=== PATIENT | female | born 1935 | race Caucasian/White ===

== ENCOUNTER 2017-03-22 13:48 | Emergency (ER) | payer MEDICARE, OTHER ==
[2017-03-22 13:57] VITALS: BP 155/44
== END 2017-03-22 14:57 | disposition home or self-care (01) ==
LOC: JD.ED 13:48
DX: Z53.21 Procedure and treatment not carried out due to patient leaving prior to being seen by health care provider (principal); N18.3 Chronic kidney disease, stage 3 (moderate)
CPT/HCPCS: 76775; 76775-26; 93976; 93976-26; 99284

== ENCOUNTER 2023-03-14 12:28 | Emergency (ER) | payer MEDICARE, OTHER ==
[2023-03-14] MEDS ORDERED: Sodium Chloride 0.9% 10 ML Syringe FLUSH PRN (12:35)
[2023-03-14] MEDS ORDERED: Sodium Chloride 0.9% 1,000 ML IV ONE (12:36)
[2023-03-14 13:04] LABS: BASOPHILS ABSOLUTE AUTO 0.02 K/mm3 (0.01-0.08); BASOPHILS PERCENT AUTO 0.3 % (0.1-1.2); EOSINOPHILS ABSOLUTE AUTO 0.09 K/mm3 (0.04-0.36); EOSINOPHILS PERCENT AUTO 1.5 (0.7-5.8); HEMATOCRIT 34.7 % (34.1-44.9); IMMATURE GRAN ABSOLUTE AUTO 0.01 K/mm3 (0.00-0.10); IMMATURE GRAN PERCENT AUTO 0.2 % (<=1.0); LYMPHOCYTES ABSOLUTE AUTO 2.08 K/mm3 (1.18-3.74); LYMPHOCYTES PERCENT AUTO 33.7 % (19.3-51.7); MEAN CORPUSCULAR HEMOGLOBIN 30.6 pg (25.6-32.2); MEAN CORPUSCULAR HGB CONC 32.6 g/dl (32.2-35.5); MEAN PLATELET VOLUME 10.1 fl (9.4-12.3); MONOCYTES ABSOLUTE AUTO 0.61 K/mm3 (0.24-0.36); MONOCYTES PERCENT AUTO 9.9 % (4.7-12.5); NEUTROPHILS ABSOLUTE AUTO 3.36 K/mm3 (1.56-6.13); NEUTROPHILS PERCENT AUTO 54.4 % (34.0-71.1); PLATELET COUNT,PLT 185 K/mm3 (182-369); RED BLOOD CELL COUNT 3.69 M/mm3 (3.98-5.22); WHITE BLOOD CELL COUNT,WBC 6.17 K/mm3 (3.98-10.04)
[2023-03-14 13:07] LABS: HEMOGLOBIN 11.3 gm/dl (11.2-15.7)
[2023-03-14 13:22] LABS: INR 1.03
[2023-03-14 13:23] LABS: PTT,PARTIAL THROMBOPLSTIN TIME 27.6 SECONDS (21.7-31.4)
[2023-03-14 13:35] LABS: A/G RATIO 0.8 (1-2); ALANINE AMINOTRANSFERASE,ALT 26 U/L (14-59); ALBUMIN 3.2 g/dl (3.4-5.0); ALKALINE PHOSPHATASE 72 U/L (46-116); ANION GAP 12.9 (5-15); ASPARTATE AMNIOTRANSFERASE,AST 23 U/L (15-37); BILIRUBIN TOTAL 0.8 mg/dL (0.2-1.0); BLOOD UREA NITROGEN,BUN 56 mg/dL (7-18); BUN/CREATININE RATIO 23.3 (14-18); CARBON DIOXIDE,CO2 24 mEq/L (21-32); CHLORIDE,CL 108 mEq/L (98-107); CREATININE 2.4 mg/dL (0.55-1.02); ESTIMATED GFR 19 mL/min (>60); GLUCOSE RANDOM 96 mg/dL (70-99); MAGNESIUM 1.5 mg/dL (1.8-2.4); POTASSIUM,K 4.9 mEq/L (3.5-5.1); SODIUM,NA 140 mEq/L (136-145); TROPONIN I HIGH SENSITIVITY 19 pg/mL (<=51)
[2023-03-14 16:33] VITALS: BP 174/50; PULSE 65
== END 2023-03-14 15:20 | disposition home or self-care (01) ==
LOC: JD.ED 12:28
DX: E86.0 Dehydration (principal); I11.0 Hypertensive heart disease with heart failure; I50.9 Heart failure, unspecified; K21.9 Gastro-esophageal reflux disease without esophagitis; Z79.82 Long term (current) use of aspirin; Z79.899 Other long term (current) drug therapy
CPT/HCPCS: 36415; 71045; 80053; 83735; 83880; 84484; 85025; 85610; 85730; 93005; 96360; 99285; J3490; J7030; 93010; 99284

== ENCOUNTER 2023-11-22 10:54 | Inpatient (IN) | payer MEDICARE, OTHER ==
[2023-11-22] MEDS: Naproxen 500 MG Tab PO ONE (13:50)
[2023-11-22] MEDS: Losartan 50 MG Tab PO ONE (13:50)
[2023-11-22] MEDS: HYDROmorphone 0.5 MG/0.5 ML Syringe IVPUSH ONE ×2 (13:50→15:15)
[2023-11-22] MEDS ORDERED: Ondansetron 4 MG/2 ML SDV IV PRN (17:06)
[2023-11-22] MEDS ORDERED: Acetaminophen/HYDROcodone 325-5 MG Tab PO PRN (17:14)
[2023-11-22] MEDS ORDERED: Naloxone 0.4 MG/ML SDV IVPUSH PRN (17:14)
[2023-11-22 17:34] LABS: BASOPHILS PERCENT AUTO 0.6 % (0.0-1.0); EOSINOPHILS ABSOLUTE AUTO 0.1 K/mm3 (0.0-0.4); EOSINOPHILS PERCENT AUTO 0.9 % (0.0-6.0); HEMATOCRIT 36.8 % (37.0-47.0); HEMOGLOBIN 12.1 gm/dl (12.0-16.0); IMMATURE GRAN ABSOLUTE AUTO 0.01 K/mm3 (0.00-0.05); IMMATURE GRAN PERCENT AUTO 0.2 % (0.0-0.4); LYMPHOCYTES ABSOLUTE AUTO 2.2 K/mm3 (1.0-4.8); MEAN CORPUSCULAR HEMOGLOBIN 31.2 pg (28.0-32.0); MEAN CORPUSCULAR HGB CONC 32.9 g/dl (32.0-36.0); MEAN CORPUSCULAR VOLUME 94.8 fl (83.0-99.0); MEAN PLATELET VOLUME 9.9 fl (9.4-12.3); MONOCYTES ABSOLUTE AUTO 0.5 K/mm3 (0.0-0.8); MONOCYTES PERCENT AUTO 8.8 % (0.0-8.0); NEUTROPHILS ABSOLUTE AUTO 2.5 K/mm3 (1.8-7.7); NEUTROPHILS PERCENT AUTO 47.5 % (41.0-71.0); PLATELET COUNT,PLT 151 K/mm3 (150-400); RED BLOOD CELL COUNT 3.88 M/mm3 (4.10-5.30); WHITE BLOOD CELL COUNT,WBC 5.33 K/mm3 (3.9-11.3)
[2023-11-22 17:58] LABS: A/G RATIO 1.1 (1-2); ALBUMIN 3.7 g/dl (3.4-5.0); ANION GAP 12.5 (5-15); BILIRUBIN TOTAL 0.8 mg/dL (0.2-1.0); BUN/CREATININE RATIO 22.4 (14-18); CALCIUM 9.2 mg/dL (8.5-10.1); CREATININE 1.7 mg/dL (0.55-1.02); EST CRCL DRUG DOSING (CG) 16.43 mL/min; POTASSIUM,K 4.5 mEq/L (3.5-5.1); PROTEIN TOTAL,TP 7.1 g/dl (6.4-8.2)
[2023-11-22] MEDS: HYDROmorphone 0.5 MG/0.5 ML Syringe IVPUSH PRN (18:19)
[2023-11-22] MEDS: Aspirin 81 MG Tab.EC PO SCH (20:04)
[2023-11-22] MEDS: Carvedilol 6.25 MG Tab PO SCH (20:04)
[2023-11-22] MEDS: Furosemide 20 MG Tab PO SCH (20:04)
[2023-11-22] MEDS: atorvaSTATin 20 MG Tab PO SCH (20:04)
[2023-11-22] MEDS: rOPINIRole 1 MG Tab PO SCH (20:39)
[2023-11-22] MEDS: Losartan 100 MG Tab PO SCH (20:40)
[2023-11-23] MEDS: FLUOCINONIDE SCH (01:11)
[2023-11-23 06:13] LABS: BASOPHILS PERCENT AUTO 0.4 % (0.0-1.0); EOSINOPHILS ABSOLUTE AUTO 0.1 K/mm3 (0.0-0.4); HEMATOCRIT 34.1 % (37.0-47.0); HEMOGLOBIN 11.4 gm/dl (12.0-16.0); IMMATURE GRAN ABSOLUTE AUTO 0.01 K/mm3 (0.00-0.05); IMMATURE GRAN PERCENT AUTO 0.2 % (0.0-0.4); LYMPHOCYTES ABSOLUTE AUTO 2.1 K/mm3 (1.0-4.8); LYMPHOCYTES PERCENT AUTO 38.1 % (24.0-44.0); MEAN CORPUSCULAR HGB CONC 33.4 g/dl (32.0-36.0); MEAN CORPUSCULAR VOLUME 92.7 fl (83.0-99.0); MEAN PLATELET VOLUME 10.4 fl (9.4-12.3); MONOCYTES ABSOLUTE AUTO 0.6 K/mm3 (0.0-0.8); MONOCYTES PERCENT AUTO 10.6 % (0.0-8.0); NEUTROPHILS ABSOLUTE AUTO 2.7 K/mm3 (1.8-7.7); NEUTROPHILS PERCENT AUTO 48.7 % (41.0-71.0); PLATELET COUNT,PLT 142 K/mm3 (150-400); RED BLOOD CELL COUNT 3.68 M/mm3 (4.10-5.30); WHITE BLOOD CELL COUNT,WBC 5.48 K/mm3 (3.9-11.3)
[2023-11-23 06:26] LABS: ANION GAP 14.3 (5-15); BUN/CREATININE RATIO 22.6 (14-18); CALCIUM 9.2 mg/dL (8.5-10.1); CREATININE 1.9 mg/dL (0.55-1.02); EST CRCL DRUG DOSING (CG) 14.7 mL/min; POTASSIUM,K 4.3 mEq/L (3.5-5.1)
[2023-11-23] MEDS: Losartan 25 MG Tab PO SCH (09:07)
[2023-11-23] MEDS: Multivitamins with Minerals/Folic Acid/Lutein/Zeaxanth Tab PO SCH (09:07)
[2023-11-23] MEDS: Pantoprazole 40 MG Tab.CR PO SCH (09:09)
[2023-11-23] MEDS: Heparin Sodium 5,000 Units/ML Vial SUBCUT SCH (09:11)
[2023-11-23] MEDS: Sodium Chloride 0.9% 1,000 ML IV SCH ×2 (09:11→21:57)
[2023-11-23] MEDS: Sodium Chloride 0.9% 250 ML IV ONE (09:37)
[2023-11-23] MEDS: Acetaminophen/HYDROcodone 325-5 MG Tab PO PRN (12:07)
[2023-11-23] MEDS: Lidocaine 4% 1 each Patch TOP SCH (12:08)
[2023-11-23] MEDS: Acetaminophen/HYDROcodone 325-10 MG Tab PO PRN (15:22)
[2023-11-24 06:41] LABS: BASOPHILS PERCENT AUTO 0.5 % (0.0-1.0); EOSINOPHILS ABSOLUTE AUTO 0.1 K/mm3 (0.0-0.4); EOSINOPHILS PERCENT AUTO 2.1 % (0.0-6.0); HEMATOCRIT 33.1 % (37.0-47.0); HEMOGLOBIN 10.9 gm/dl (12.0-16.0); LYMPHOCYTES PERCENT AUTO 46.5 % (24.0-44.0); MEAN CORPUSCULAR HEMOGLOBIN 30.6 pg (28.0-32.0); MEAN CORPUSCULAR HGB CONC 32.9 g/dl (32.0-36.0); MEAN PLATELET VOLUME 10.2 fl (9.4-12.3); MONOCYTES ABSOLUTE AUTO 0.5 K/mm3 (0.0-0.8); MONOCYTES PERCENT AUTO 10.9 % (0.0-8.0); NEUTROPHILS ABSOLUTE AUTO 1.7 K/mm3 (1.8-7.7); PLATELET COUNT,PLT 142 K/mm3 (150-400); RED BLOOD CELL COUNT 3.56 M/mm3 (4.10-5.30); WHITE BLOOD CELL COUNT,WBC 4.32 K/mm3 (3.9-11.3)
[2023-11-24 07:12] LABS: ANION GAP 15.3 (5-15); BUN/CREATININE RATIO 24.7 (14-18); CALCIUM 8.6 mg/dL (8.5-10.1); CREATININE 1.7 mg/dL (0.55-1.02); EST CRCL DRUG DOSING (CG) 16.43 mL/min; POTASSIUM,K 4.3 mEq/L (3.5-5.1)
[2023-11-24] MEDS: Sodium Chloride 0.9% 1,000 ML IV SCH (11:08)
[2023-11-24] MEDS: Bisacodyl 5 MG Tab PO SCH (15:04)
[2023-11-24] MEDS: Sennosides 8.6 MG Tab PO SCH (15:04)
[2023-11-24] MEDS: Hydrochlorothiazide 12.5 MG Cap PO SCH (19:47)
[2023-11-25 06:10] LABS: ANION GAP 13.1 (5-15); BUN/CREATININE RATIO 22.7 (14-18); CALCIUM 8.6 mg/dL (8.5-10.1); CREATININE 1.5 mg/dL (0.55-1.02); EST CRCL DRUG DOSING (CG) 18.62 mL/min; POTASSIUM,K 4.1 mEq/L (3.5-5.1)
[2023-11-25 06:17] LABS: BASOPHILS PERCENT AUTO 0.2 % (0.0-1.0); EOSINOPHILS ABSOLUTE AUTO 0.1 K/mm3 (0.0-0.4); EOSINOPHILS PERCENT AUTO 2.9 % (0.0-6.0); HEMOGLOBIN 10.5 gm/dl (12.0-16.0); IMMATURE GRAN ABSOLUTE AUTO 0.01 K/mm3 (0.00-0.05); IMMATURE GRAN PERCENT AUTO 0.2 % (0.0-0.4); LYMPHOCYTES ABSOLUTE AUTO 1.7 K/mm3 (1.0-4.8); MEAN CORPUSCULAR HEMOGLOBIN 30.3 pg (28.0-32.0); MEAN CORPUSCULAR HGB CONC 32.8 g/dl (32.0-36.0); MEAN CORPUSCULAR VOLUME 92.5 fl (83.0-99.0); MEAN PLATELET VOLUME 10.2 fl (9.4-12.3); MONOCYTES ABSOLUTE AUTO 0.4 K/mm3 (0.0-0.8); MONOCYTES PERCENT AUTO 10.2 % (0.0-8.0); NEUTROPHILS ABSOLUTE AUTO 1.9 K/mm3 (1.8-7.7); NEUTROPHILS PERCENT AUTO 45.5 % (41.0-71.0); PLATELET COUNT,PLT 131 K/mm3 (150-400); RED BLOOD CELL COUNT 3.46 M/mm3 (4.10-5.30); WHITE BLOOD CELL COUNT,WBC 4.12 K/mm3 (3.9-11.3)
[2023-11-25] MEDS: Polyethylene Glycol 3350 Powder 17 GM Packet PO PRN (11:00)
[2023-11-25] MEDS ORDERED: Acetaminophen/HYDROcodone 325-5 MG Tab PO PRN (14:06)
[2023-11-25] MEDS: Acetaminophen 325 MG Tab PO PRN (20:36)
[2023-11-26 05:28] LABS: BASOPHILS PERCENT AUTO 0.5 % (0.0-1.0); EOSINOPHILS ABSOLUTE AUTO 0.1 K/mm3 (0.0-0.4); EOSINOPHILS PERCENT AUTO 2.6 % (0.0-6.0); HEMATOCRIT 32.3 % (37.0-47.0); IMMATURE GRAN ABSOLUTE AUTO 0.01 K/mm3 (0.00-0.05); IMMATURE GRAN PERCENT AUTO 0.3 % (0.0-0.4); LYMPHOCYTES ABSOLUTE AUTO 1.8 K/mm3 (1.0-4.8); LYMPHOCYTES PERCENT AUTO 45.9 % (24.0-44.0); MEAN CORPUSCULAR HEMOGLOBIN 31.3 pg (28.0-32.0); MEAN CORPUSCULAR HGB CONC 34.1 g/dl (32.0-36.0); MEAN CORPUSCULAR VOLUME 91.8 fl (83.0-99.0); MEAN PLATELET VOLUME 10.4 fl (9.4-12.3); MONOCYTES ABSOLUTE AUTO 0.4 K/mm3 (0.0-0.8); NEUTROPHILS ABSOLUTE AUTO 1.6 K/mm3 (1.8-7.7); NEUTROPHILS PERCENT AUTO 39.7 % (41.0-71.0); PLATELET COUNT,PLT 124 K/mm3 (150-400); RED BLOOD CELL COUNT 3.52 M/mm3 (4.10-5.30); WHITE BLOOD CELL COUNT,WBC 3.92 K/mm3 (3.9-11.3)
[2023-11-26 06:34] LABS: ANION GAP 13.3 (5-15); BUN/CREATININE RATIO 20.7 (14-18); CREATININE 1.4 mg/dL (0.55-1.02); EST CRCL DRUG DOSING (CG) 19.95 mL/min; POTASSIUM,K 4.3 mEq/L (3.5-5.1)
[2023-11-26] MEDS: Magnesium Hydroxide 400 MG/5 ML Susp 30 ML Cup PO ONE (08:38)
[2023-11-26] MEDS ORDERED: amLODIPine 5 MG Tab PO SCH (09:00)
[2023-11-26] MEDS: Hydrochlorothiazide 12.5 MG Cap PO SCH (09:07)
[2023-11-26] MEDS: Losartan 25 MG Tab PO SCH (09:17)
[2023-11-26] MEDS: hydrALAZINE 20 MG/ML SDV IVPUSH PRN (15:28)
[2023-11-27 06:20] LABS: BASOPHILS PERCENT AUTO 0.2 % (0.0-1.0); EOSINOPHILS ABSOLUTE AUTO 0.1 K/mm3 (0.0-0.4); EOSINOPHILS PERCENT AUTO 2.9 % (0.0-6.0); HEMATOCRIT 33.2 % (37.0-47.0); HEMOGLOBIN 11.4 gm/dl (12.0-16.0); IMMATURE GRAN ABSOLUTE AUTO 0.01 K/mm3 (0.00-0.05); IMMATURE GRAN PERCENT AUTO 0.2 % (0.0-0.4); LYMPHOCYTES ABSOLUTE AUTO 1.7 K/mm3 (1.0-4.8); LYMPHOCYTES PERCENT AUTO 40.9 % (24.0-44.0); MEAN CORPUSCULAR HEMOGLOBIN 31.8 pg (28.0-32.0); MEAN CORPUSCULAR HGB CONC 34.3 g/dl (32.0-36.0); MEAN CORPUSCULAR VOLUME 92.5 fl (83.0-99.0); MEAN PLATELET VOLUME 9.8 fl (9.4-12.3); MONOCYTES ABSOLUTE AUTO 0.4 K/mm3 (0.0-0.8); MONOCYTES PERCENT AUTO 9.1 % (0.0-8.0); NEUTROPHILS ABSOLUTE AUTO 1.9 K/mm3 (1.8-7.7); NEUTROPHILS PERCENT AUTO 46.7 % (41.0-71.0); PLATELET COUNT,PLT 149 K/mm3 (150-400); RED BLOOD CELL COUNT 3.59 M/mm3 (4.10-5.30); WHITE BLOOD CELL COUNT,WBC 4.08 K/mm3 (3.9-11.3)
[2023-11-27 06:38] LABS: ANION GAP 15.4 (5-15); BUN/CREATININE RATIO 17.1 (14-18); CALCIUM 9.4 mg/dL (8.5-10.1); CREATININE 1.4 mg/dL (0.55-1.02); EST CRCL DRUG DOSING (CG) 19.95 mL/min; POTASSIUM,K 4.4 mEq/L (3.5-5.1)
[2023-11-27] MEDS: Acetaminophen 325 MG Tab PO SCH (11:20)
[2023-11-27] MEDS ORDERED: Sennosides 8.6 MG Tab PO PRN (18:18)
[2023-11-28 04:42] LABS: BASOPHILS PERCENT AUTO 0.2 % (0.0-1.0); EOSINOPHILS ABSOLUTE AUTO 0.1 K/mm3 (0.0-0.4); EOSINOPHILS PERCENT AUTO 2.4 % (0.0-6.0); HEMATOCRIT 31.8 % (37.0-47.0); HEMOGLOBIN 10.9 gm/dl (12.0-16.0); IMMATURE GRAN ABSOLUTE AUTO 0.01 K/mm3 (0.00-0.05); IMMATURE GRAN PERCENT AUTO 0.2 % (0.0-0.4); LYMPHOCYTES ABSOLUTE AUTO 2.1 K/mm3 (1.0-4.8); LYMPHOCYTES PERCENT AUTO 45.7 % (24.0-44.0); MEAN CORPUSCULAR HEMOGLOBIN 32.1 pg (28.0-32.0); MEAN CORPUSCULAR HGB CONC 34.3 g/dl (32.0-36.0); MEAN CORPUSCULAR VOLUME 93.5 fl (83.0-99.0); MEAN PLATELET VOLUME 9.8 fl (9.4-12.3); MONOCYTES ABSOLUTE AUTO 0.5 K/mm3 (0.0-0.8); MONOCYTES PERCENT AUTO 11.5 % (0.0-8.0); NEUTROPHILS ABSOLUTE AUTO 1.8 K/mm3 (1.8-7.7); PLATELET COUNT,PLT 142 K/mm3 (150-400); WHITE BLOOD CELL COUNT,WBC 4.53 K/mm3 (3.9-11.3)
[2023-11-28 05:09] LABS: ANION GAP 15.8 (5-15); BUN/CREATININE RATIO 16.5 (14-18); CALCIUM 9.1 mg/dL (8.5-10.1); CREATININE 1.7 mg/dL (0.55-1.02); EST CRCL DRUG DOSING (CG) 16.43 mL/min; POTASSIUM,K 3.8 mEq/L (3.5-5.1)
[2023-11-28] MEDS: Losartan 50 MG Tab PO SCH (08:59)
[2023-11-28] MEDS: Hydrochlorothiazide 25 MG Tab PO SCH (09:00)
[2023-11-28 09:11] VITALS: BP 192/71
[2023-11-28 09:45] VITALS: PULSE 69
== END 2023-11-28 10:27 | DRG 552 ==
LOC: JD.ED 10:54 → JD.MS 16:28
PROVIDERS: ADMIT Student in an Organized Health Care Education/Training Program; ATTEND Internal Medicine
DX: M48.061 Spinal stenosis, lumbar region without neurogenic claudication (principal); I13.0 Hypertensive heart and chronic kidney disease with heart failure and stage 1 through stage 4 chronic kidney disease, or unspecified chronic kidney disease; I11.0 Hypertensive heart disease with heart failure; N17.9 Acute kidney failure, unspecified; M48.04 Spinal stenosis, thoracic region; I50.9 Heart failure, unspecified; K21.9 Gastro-esophageal reflux disease without esophagitis; Z66 Do not resuscitate; K52.9 Noninfective gastroenteritis and colitis, unspecified; Z96.659 Presence of unspecified artificial knee joint; M62.838 Other muscle spasm; R29.898 Other symptoms and signs involving the musculoskeletal system; R33.9 Retention of urine, unspecified; R26.2 Difficulty in walking, not elsewhere classified; R15.9 Full incontinence of feces; N18.32 Chronic kidney disease, stage 3b; Z11.52 Encounter for screening for COVID-19; Z79.899 Other long term (current) drug therapy; Z79.82 Long term (current) use of aspirin; Z79.2 Long term (current) use of antibiotics; Z98.49 Cataract extraction status, unspecified eye
CPT/HCPCS: 36415; 72128; 72128-26; 72131; 72131-26; 72148; 72148-26; 80048; 80053; 85025; 93970; 93970-26; 96374; 96375; 96376; 97110-GP; 97116-GP; 97162-GP; 97530-GP; 99222; 99232; 99239; 99285-25; A9270-GY; J0360; J1170; J1644; J3360; J7030; U0002